=== PATIENT | male | born 1935 | race Two or more races ===

== ENCOUNTER 2023-02-05 16:16 | Inpatient (IN) | payer OTHER ==
[~2023-02-05] VITALS: Ht 160 cm; Wt 59.0 kg
[2023-02-05] MEDS ORDERED: VANCOMYCIN 1 GM in IV D5W 250 ML IV ONE (16:30)
[2023-02-05] MEDS ORDERED: IV NS 0.9% 1,000 ML BAG IV ONE (16:30)
[2023-02-05] MEDS ORDERED: ACETAMINOPHEN 650 MG/SUPP.RECT RC ONE ×2 (16:30→16:42)
[2023-02-05] MEDS ORDERED: CEFEPIME 1 GM in IV D5W 50 ML IV ONE (16:30)
[2023-02-05] MEDS ORDERED: VANCOMYCIN 1 GM /D5W 250 ML PB IV ONE (16:42)
[2023-02-05 16:47] LABS: ABG BASE EXCESS -4.9 mmol/L; ABG OXYGEN SATURATION 91.6 % (92.0-98.5); ABG PCO2 31.8 mmHg (35.0-45.0); ABG PH 7.388 (7.350-7.450); ABG TOTAL HEMOGLOBIN 17.3 G/dL (13.5-18.0); COHb 1.3 % (0.5-1.5); MetHb 0.6 % (0.0-1.5); O2Hb 89.9 % (94.0-97.0); SITE, ABG Right Radial; VENT MODE, BG 4LNC
[2023-02-05 16:59] LABS: CARBON DIOXIDE 23 mmol/L (21-32); CHLORIDE 107 mmol/L (98-107); CREATININE 1.4 mg/dL (0.6-1.3); GLUCOSE 131 mg/dL (74-106); POTASSIUM 4.2 mmol/L (3.5-5.1); SODIUM SERUM 142 mmol/L (136-145); UREA NITROGEN, BLOOD 32 mg/dL (7-18)
[2023-02-05 17:00] LABS: BASOPHILS % (AUTO) 0.2 % (0.0-2.0); EOSINOPHILS % (AUTO) 0.4 % (0.0-6.0); HEMATOCRIT 51 % (39-51); HEMOGLOBIN 17.1 g/dL (13.5-17.5); LYMPHOCYTES # (AUTO) 0.4 K/uL (0.8-4.8); LYMPHOCYTES % (AUTO) 16.2 % (20.0-44.0); MEAN CORPUSCULAR HEMOGLOBIN 35 PG (26.0-33.0); MEAN CORPUSCULAR HGB CONC 33 g/dl (31.0-36.0); MEAN CORPUSCULAR VOLUME 106 fL (80-96); MONOCYTES # (AUTO) 0.1 K/uL (0.1-1.30); MONOCYTES % (AUTO) 2.7 % (2.0-12.0); NEUTROPHILS # (AUTO) 1.9 K/uL (1.8-8.9); NEUTROPHILS % (AUTO) 80.5 % (43.0-81.0); PLATELET COUNT (AUTO) 114 K/uL (150-450); RED BLOOD CELL COUNT(AUTO) 4.86 MIL/uL (4.5-6.0); RED CELL DISTRIBUTION WIDTH 15.2 % (11.5-15.0); WHITE BLOOD COUNT (AUTO) 2.4 K/uL (4.3-11.0)
[2023-02-05 17:05] LABS: ALANINE AMINOTRANSFERASE 14 U/L (12-78); ALBUMIN 2.9 g/dL (3.4-5.0); ALKALINE PHOSPHATASE 91 U/L (46-116); ASPARTATE AMINOTRANSFERASE 35 U/L (15-37); BILIRUBIN,DIRECT 0.5 mg/dL (0.0-0.2); BILIRUBIN,TOTAL 1.9 mg/dL (0.2-1.0); TOTAL PROTEIN, SERUM 8.2 g/dL (6.4-8.2)
[2023-02-05 17:10] LABS: LACTIC ACID 3.7 mmol/L (0.4-2.0)
[2023-02-05 17:56] LABS: APPEARANCE,URINE CLEAR (CLEAR); BILIRUBIN,URINE NEGATIVE (NEGATIVE); BLOOD, URINE 3+ Ery/uL (NEGATIVE); COLOR,URINE YELLOW (YELLOW); KETONES,URINE NEGATIVE (NEGATIVE); LEUKOCYTE ESTERASE ,URINE NEGATIVE (NEGATIVE); NITRITE, URINE NEGATIVE (NEGATIVE); PROTEIN,URINE 3+ mg/dl (NEGATIVE); UGLUCOSE NEGATIVE (NEGATIVE)
[2023-02-05 17:59] LABS: INR 1.12 (0.91-1.10); PARTIAL THROMBOPLASTIN TIME 29.6 SEC (24.3-34.3); PROTHROMBIN TIME 11.7 SECS (9.2-11.1)
[2023-02-05] MEDS ORDERED: IV NS 0.9% 1,000 ML IV ONE (18:30)
[2023-02-05 18:45] LABS: ADD URINE CULTURE NO; BACTERIA,URINE 1+ /HPF (None Seen); FINE GRANULAR CASTS,URINE Few /LPF (None Seen); MUCUS,URINE Few /LPF (None Seen); RBC,URINE 51-80 /HPF (0-2); WBC,URINE 0-2 /HPF (0-3)
[2023-02-05] MEDS ORDERED: IBUPROFEN 600 MG TABLET ONE (18:52)
[2023-02-05 18:56] LABS: ANISOCYTOSIS 1+; BAND % (MANUAL) 14 % (0.0-5.0); LYMPHOCYTES % (MANUAL) 22 % (16-48); NEUTROPHILS % (MANUAL) 64 (42-76); PLATELET ESTIMATE DECREASED; ROULEAUX 1+
[2023-02-05] MEDS ORDERED: IBUPROFEN 400 MG TABLET PO ONE (19:00)
[2023-02-05] MEDS ORDERED: IOHEXOL-300 100 ML VIAL IV ONE (19:48)
[2023-02-05] MEDS ORDERED: IV NS 0.9% 250 ML IV ONE (19:49)
[2023-02-05] MEDS ORDERED: ACETAMINOPHEN 650 MG/SUPP.RECT RC PRN (22:30)
[2023-02-05] MEDS ORDERED: ALBUTEROL FS 2.5 MG/3 ML VIAL.NEB NEB PRN (22:30)
[2023-02-05] MEDS ORDERED: ACETAMINOPHEN 325 MG TABLET PO PRN (22:30)
[2023-02-05] MEDS ORDERED: ONDANSETRON HCL/PF 4 MG/2 ML VIAL IVP PRN (22:30)
[2023-02-05] MEDS ORDERED: IPRATROPIUM NEB FS 0.5 MG/2.5 ML AMPUL.NEB NEB PRN (22:30)
[2023-02-05] MEDS ORDERED: Z GUARD REMEDY 4 OZ OINT TP PRN (22:30)
[2023-02-06 02:06] VITALS: BP 152/96; TEMP 98.9; O2SAT 96
[2023-02-06] MEDS ORDERED: CEFEPIME 1 GM in IV D5W 50 ML IV ONE (05:00)
[2023-02-06] MEDS ORDERED: CEFEPIME 1 GM VIAL ONE (05:08)
[2023-02-06] MEDS: IV D5/0.45 NACL 1,000 ML IV PRN ×2 (05:37→23:51)
[2023-02-06 05:44] LABS: BASOPHILS % (AUTO) 0.1 % (0.0-2.0); EOSINOPHILS % (AUTO) 0.1 % (0.0-6.0); HEMATOCRIT 46 % (39-51); HEMOGLOBIN 14.8 g/dL (13.5-17.5); LYMPHOCYTES # (AUTO) 1.2 K/uL (0.8-4.8); LYMPHOCYTES % (AUTO) 15.6 % (20.0-44.0); MEAN CORPUSCULAR HEMOGLOBIN 34 PG (26.0-33.0); MEAN CORPUSCULAR HGB CONC 33 g/dl (31.0-36.0); MEAN CORPUSCULAR VOLUME 105 fL (80-96); MONOCYTES # (AUTO) 0.7 K/uL (0.1-1.30); MONOCYTES % (AUTO) 8.7 % (2.0-12.0); NEUTROPHILS # (AUTO) 5.8 K/uL (1.8-8.9); NEUTROPHILS % (AUTO) 75.5 % (43.0-81.0); PLATELET COUNT (AUTO) 97 K/uL (150-450); RED BLOOD CELL COUNT(AUTO) 4.32 MIL/uL (4.5-6.0); RED CELL DISTRIBUTION WIDTH 15.1 % (11.5-15.0); WHITE BLOOD COUNT (AUTO) 7.7 K/uL (4.3-11.0)
[2023-02-06 06:02] LABS: CALCIUM, SERUM 8.2 mg/dL (8.5-10.1); CARBON DIOXIDE 22 mmol/L (21-32); CHLORIDE 110 mmol/L (98-107); CREATININE 1.4 mg/dL (0.6-1.3); GLUCOSE 125 mg/dL (74-106); MAGNESIUM 1.6 mg/dL (1.8-2.4); PHOSPHORUS 2.8 mg/dL (2.5-4.9); POTASSIUM 3.8 mmol/L (3.5-5.1); SODIUM SERUM 142 mmol/L (136-145); UREA NITROGEN, BLOOD 40 mg/dL (7-18)
[2023-02-06 06:09] LABS: CHOLESTEROL 82 mg/dL (<200); HDL CHOLESTEROL 44 mg/dL (40-60); LDL 42 mg/dL (0-99); TRIGLYCERIDES 57 mg/dL (30-150)
[2023-02-06] MEDS ORDERED: PANTOPRAZOLE 40 MG TABLET.DR PO SCH (07:30)
[2023-02-06] MEDS: PANTOPRAZOLE 40 MG VIAL IV SCH (08:32)
[2023-02-06] MEDS: HEPARIN SODIUM, PORCINE 5000 UNITS/1 ML VIAL SQ SCH ×2 (08:33→21:00)
[2023-02-06] MEDS: Magnesium 1GM/D5W 100ML PREMIX 100 ML IV SCH ×2 (12:10→13:17)
[2023-02-06 13:26] LABS: BAND % (MANUAL) 24 % (0.0-5.0); LYMPHOCYTES % (MANUAL) 23 % (16-48); MONOCYTES % (MANUAL) 9 % (0-11.0); NEUTROPHILS % (MANUAL) 44 (42-76); PLATELET ESTIMATE DECREASED
[2023-02-06 13:27] LABS: ANISOCYTOSIS 1+
[2023-02-06 13:28] LABS: OVALOCYTES 1+
[2023-02-06 13:29] LABS: TEAR DROP CELLS OCC
[2023-02-06] MEDS: VANCOMYCIN 1 GM in IV D5W 250ml IV SCH (16:24)
[2023-02-06 20:00] VITALS: BP 146/65; TEMP 99.3; O2SAT 97
[2023-02-07] VITALS: BP 150/59; TEMP 98.8; O2SAT 98
[2023-02-07 04:00] VITALS: BP 144/63; TEMP 98.4; O2SAT 97
[2023-02-07] MEDS: CEFEPIME 2 GM in IV D5W 100 ML IV SCH (05:18)
[2023-02-07 06:47] LABS: BASOPHILS % (AUTO) 0.1 % (0.0-2.0); EOSINOPHILS # (AUTO) 0.2 K/uL (0.0-0.7); EOSINOPHILS % (AUTO) 1.5 % (0.0-6.0); HEMATOCRIT 42 % (39-51); HEMOGLOBIN 13.9 g/dL (13.5-17.5); LYMPHOCYTES # (AUTO) 1.1 K/uL (0.8-4.8); LYMPHOCYTES % (AUTO) 10.5 % (20.0-44.0); MEAN CORPUSCULAR HEMOGLOBIN 35 PG (26.0-33.0); MEAN CORPUSCULAR HGB CONC 33 g/dl (31.0-36.0); MEAN CORPUSCULAR VOLUME 107 fL (80-96); MONOCYTES # (AUTO) 0.5 K/uL (0.1-1.30); MONOCYTES % (AUTO) 4.4 % (2.0-12.0); NEUTROPHILS % (AUTO) 83.5 % (43.0-81.0); PLATELET COUNT (AUTO) 97 K/uL (150-450); RED BLOOD CELL COUNT(AUTO) 3.97 MIL/uL (4.5-6.0); RED CELL DISTRIBUTION WIDTH 14.9 % (11.5-15.0); WHITE BLOOD COUNT (AUTO) 10.8 K/uL (4.3-11.0)
[2023-02-07 07:07] LABS: ALANINE AMINOTRANSFERASE 17 U/L (12-78); ALBUMIN 2.2 g/dL (3.4-5.0); ALKALINE PHOSPHATASE 55 U/L (46-116); ASPARTATE AMINOTRANSFERASE 32 U/L (15-37); BILIRUBIN,TOTAL 1.1 mg/dL (0.2-1.0); CALCIUM, SERUM 7.9 mg/dL (8.5-10.1); CARBON DIOXIDE 26 mmol/L (21-32); CHLORIDE 106 mmol/L (98-107); CREATININE 1.1 mg/dL (0.6-1.3); GLUCOSE 145 mg/dL (74-106); MAGNESIUM 2.4 mg/dL (1.8-2.4); PHOSPHORUS 1.4 mg/dL (2.5-4.9); POTASSIUM 3.6 mmol/L (3.5-5.1); SODIUM SERUM 138 mmol/L (136-145); UREA NITROGEN, BLOOD 33 mg/dL (7-18)
[2023-02-07] MEDS: PANTOPRAZOLE 40 MG VIAL IV SCH (08:43)
[2023-02-07] MEDS: HEPARIN SODIUM, PORCINE 5000 UNITS/1 ML VIAL SQ SCH ×3 (08:44→23:00)
[2023-02-07] MEDS: LOSARTAN POTASSIUM 50 MG TABLET PO SCH (10:26)
[2023-02-07] MEDS: NEUTRA PHOS 1 POWD.PACKET PO SCH ×2 (10:26→17:41)
[2023-02-07 13:28] LABS: PLATELET ESTIMATE DECREASED
[2023-02-07 13:30] LABS: ANISOCYTOSIS 1+; TEAR DROP CELLS 1+
[2023-02-07] MEDS ORDERED: MONT10TA22 PO (13:37)
[2023-02-07] MEDS ORDERED: FLUT16SP16 (13:37)
[2023-02-07] MEDS ORDERED: ATOR40TA PO (13:37)
[2023-02-07] MEDS ORDERED: POTA10TA11 PO (13:37)
[2023-02-07] MEDS ORDERED: CARV6.252 PO (13:37)
[2023-02-07] MEDS ORDERED: CLON0.2T PO (13:37)
[2023-02-07] MEDS: VANCOMYCIN 1 GM in IV D5W 250ml IV SCH (15:15)
[2023-02-07] MEDS: IV D5/0.45 NACL 1,000 ML IV PRN (18:44)
[2023-02-07 20:00] VITALS: BP 158/85; TEMP 98.6; O2SAT 95
[2023-02-08] VITALS (7 sets, daily range): BP systolic 148–185; BP diastolic 63–89; TEMP 97.5–99.3; O2SAT 92–97
[2023-02-08] MEDS: CEFEPIME 2 GM in IV D5W 100 ML IV SCH (05:07)
[2023-02-08] MEDS: IV D5/0.45 NACL 1,000 ML IV PRN (05:10)
[2023-02-08 07:01] LABS: BASOPHILS % (AUTO) 0.1 % (0.0-2.0); EOSINOPHILS # (AUTO) 0.2 K/uL (0.0-0.7); EOSINOPHILS % (AUTO) 2.6 % (0.0-6.0); HEMATOCRIT 40 % (39-51); HEMOGLOBIN 13.1 g/dL (13.5-17.5); LYMPHOCYTES # (AUTO) 0.9 K/uL (0.8-4.8); LYMPHOCYTES % (AUTO) 9.3 % (20.0-44.0); MEAN CORPUSCULAR HEMOGLOBIN 35 PG (26.0-33.0); MEAN CORPUSCULAR HGB CONC 33 g/dl (31.0-36.0); MEAN CORPUSCULAR VOLUME 105 fL (80-96); MONOCYTES # (AUTO) 0.5 K/uL (0.1-1.30); MONOCYTES % (AUTO) 5.6 % (2.0-12.0); NEUTROPHILS # (AUTO) 7.6 K/uL (1.8-8.9); NEUTROPHILS % (AUTO) 82.4 % (43.0-81.0); PLATELET COUNT (AUTO) 111 K/uL (150-450); RED BLOOD CELL COUNT(AUTO) 3.77 MIL/uL (4.5-6.0); RED CELL DISTRIBUTION WIDTH 14.5 % (11.5-15.0); WHITE BLOOD COUNT (AUTO) 9.3 K/uL (4.3-11.0)
[2023-02-08 07:37] LABS: ALANINE AMINOTRANSFERASE 28 U/L (12-78); ALBUMIN 1.9 g/dL (3.4-5.0); ALKALINE PHOSPHATASE 61 U/L (46-116); ASPARTATE AMINOTRANSFERASE 38 U/L (15-37); BILIRUBIN,TOTAL 1.2 mg/dL (0.2-1.0); CALCIUM, SERUM 7.9 mg/dL (8.5-10.1); CARBON DIOXIDE 25 mmol/L (21-32); CREATININE 0.9 mg/dL (0.6-1.3); GLUCOSE 127 mg/dL (74-106); MAGNESIUM 2.2 mg/dL (1.8-2.4); TOTAL PROTEIN, SERUM 6.8 g/dL (6.4-8.2); UREA NITROGEN, BLOOD 21 mg/dL (7-18)
[2023-02-08 08:12] LABS: CHLORIDE 99 mmol/L (98-107); SODIUM SERUM 132 mmol/L (136-145)
[2023-02-08] MEDS: PANTOPRAZOLE 40 MG VIAL IV SCH (08:41)
[2023-02-08] MEDS: LOSARTAN POTASSIUM 50 MG TABLET PO SCH (08:43)
[2023-02-08] MEDS: NEUTRA PHOS 1 POWD.PACKET PO SCH ×2 (08:48→16:47)
[2023-02-08] MEDS: POTASSIUM CHLORIDE 20 MEQ TAB.PRT.SR PO SCH ×3 (08:48→10:58)
[2023-02-08] MEDS: ENOXAPARIN SODIUM 40 MG/0.4 ML DISP.SYRIN SQ SCH (08:50)
[2023-02-08] MEDS: VANCOMYCIN HCL 0.75 GM in IV D5W 250 ML IV SCH (16:42)
[2023-02-09] VITALS: BP 189/83; TEMP 99.1; O2SAT 92
[2023-02-09] MEDS: hydrALAZINE HCL 25 MG TABLET PO PRN (02:57)
[2023-02-09] MEDS: IV D5/ 0.9% NACL 1,000 ML IV PRN ×2 (03:14→23:51)
[2023-02-09] MEDS: VANCOMYCIN HCL 0.75 GM in IV D5W 250 ML IV SCH ×2 (03:19→16:11)
[2023-02-09 04:00] VITALS: BP 150/72; TEMP 98.6; O2SAT 92
[2023-02-09] MEDS: CEFEPIME 2 GM in IV D5W 100 ML IV SCH ×2 (05:06→21:13)
[2023-02-09 06:48] LABS: BASOPHILS % (AUTO) 0.1 % (0.0-2.0); EOSINOPHILS # (AUTO) 0.3 K/uL (0.0-0.7); EOSINOPHILS % (AUTO) 4.7 % (0.0-6.0); HEMATOCRIT 41 % (39-51); HEMOGLOBIN 13.5 g/dL (13.5-17.5); LYMPHOCYTES # (AUTO) 0.9 K/uL (0.8-4.8); MEAN CORPUSCULAR HEMOGLOBIN 35 PG (26.0-33.0); MEAN CORPUSCULAR HGB CONC 33 g/dl (31.0-36.0); MEAN CORPUSCULAR VOLUME 106 fL (80-96); MONOCYTES # (AUTO) 0.7 K/uL (0.1-1.30); MONOCYTES % (AUTO) 9.2 % (2.0-12.0); NEUTROPHILS # (AUTO) 5.5 K/uL (1.8-8.9); PLATELET COUNT (AUTO) 134 K/uL (150-450); RED BLOOD CELL COUNT(AUTO) 3.89 MIL/uL (4.5-6.0); RED CELL DISTRIBUTION WIDTH 14.8 % (11.5-15.0); WHITE BLOOD COUNT (AUTO) 7.4 K/uL (4.3-11.0)
[2023-02-09 07:20] LABS: ALBUMIN 1.8 g/dL (3.4-5.0); CREATININE 0.9 mg/dL (0.6-1.3); MAGNESIUM 2.1 mg/dL (1.8-2.4); PHOSPHORUS 2.4 mg/dL (2.5-4.9)
[2023-02-09 08:00] VITALS: BP 180/89; TEMP 98.4; O2SAT 95
[2023-02-09 08:11] LABS: POTASSIUM 3.9 mmol/L (3.5-5.1)
[2023-02-09] MEDS: PANTOPRAZOLE 40 MG/PACK PACK PO SCH (08:45)
[2023-02-09] MEDS: AMLODIPINE BESYLATE 5 MG TABLET PO SCH ×2 (08:46→21:13)
[2023-02-09] MEDS: LOSARTAN POTASSIUM 50 MG TABLET PO SCH (08:46)
[2023-02-09] MEDS: ENOXAPARIN SODIUM 40 MG/0.4 ML DISP.SYRIN SQ SCH (08:48)
[2023-02-09] MEDS ORDERED: NEUTRA PHOS 1 POWD.PACKET PO ONE (09:30)
[2023-02-09 10:12] LABS: BILIRUBIN,TOTAL 0.7 mg/dL (0.2-1.0); TOTAL PROTEIN, SERUM 6.7 g/dL (6.4-8.2)
[2023-02-09 12:00] VITALS: BP 185/84; TEMP 98.7; O2SAT 96
[2023-02-09 16:00] VITALS: BP 177/79; TEMP 98.7; O2SAT 96
[2023-02-09 20:00] VITALS: BP 159/81; TEMP 98.6; O2SAT 94
[2023-02-10] VITALS (10 sets, daily range): BP systolic 135–209; BP diastolic 69–94; TEMP 98–99.7; O2SAT 94–97
[2023-02-10] MEDS: hydrALAZINE HCL 25 MG TABLET PO PRN ×2 (00:37→16:05)
[2023-02-10 04:24] LABS: CALCIUM, SERUM 8.3 mg/dL (8.5-10.1); CREATININE 0.9 mg/dL (0.6-1.3); MAGNESIUM 1.8 mg/dL (1.8-2.4)
[2023-02-10] MEDS: VANCOMYCIN HCL 0.75 GM in IV D5W 250 ML IV SCH ×2 (04:40→15:49)
[2023-02-10] MEDS: LOSARTAN POTASSIUM 50 MG TABLET PO SCH (08:44)
[2023-02-10] MEDS: AMLODIPINE BESYLATE 5 MG TABLET PO SCH (08:45)
[2023-02-10] MEDS: ENOXAPARIN SODIUM 40 MG/0.4 ML DISP.SYRIN SQ SCH (08:46)
[2023-02-10] MEDS: PANTOPRAZOLE 40 MG/PACK PACK PO SCH (08:46)
[2023-02-10] MEDS: CEFEPIME 2 GM in IV D5W 100 ML IV SCH (08:49)
[2023-02-10] MEDS ORDERED: NEUTRA PHOS 1 POWD.PACKET PO ONE (16:00)
[2023-02-10] MEDS ORDERED: ENSURE ENLIVE CHOC 237 ML CAN PO SCH (17:00)
== END 2023-02-10 18:13 | disposition home health service (06) | DRG 871 ==
LOC: ER 16:59 → TELE1 23:54 → MEDSG1 02-10 08:38
PROVIDERS: ADMIT Nurse Practitioner Family
DX: A41.9 Sepsis, unspecified organism (principal); J69.0 Pneumonitis due to inhalation of food and vomit; J96.01 Acute respiratory failure with hypoxia; N17.0 Acute kidney failure with tubular necrosis; E44.0 Moderate protein-calorie malnutrition; D61.818 Other pancytopenia; E87.1 Hypo-osmolality and hyponatremia; E87.29 Other acidosis; G93.40 Encephalopathy, unspecified; R65.20 Severe sepsis without septic shock; E83.42 Hypomagnesemia; E86.0 Dehydration; E87.6 Hypokalemia; E88.09 Other disorders of plasma-protein metabolism, not elsewhere classified; J44.9 Chronic obstructive pulmonary disease, unspecified; M89.8X9 Other specified disorders of bone, unspecified site; E80.6 Other disorders of bilirubin metabolism; Z68.23 Body mass index [BMI] 23.0-23.9, adult; I70.0 Atherosclerosis of aorta; E87.8 Other disorders of electrolyte and fluid balance, not elsewhere classified; N18.9 Chronic kidney disease, unspecified; E83.9 Disorder of mineral metabolism, unspecified; I71.22 Aneurysm of the aortic arch, without rupture; D69.6 Thrombocytopenia, unspecified; R91.8 Other nonspecific abnormal finding of lung field
CPT/HCPCS: 36415; 36600; 71045-TC; 71260-TC; 76770-TC; 80048-TC; 80053-TC; 80061-TC; 80076-TC; 80202-TC; 81001; 83605-TC; 83735-TC; 84100-TC; 84443-TC; 84484-TC; 85025-TC; 85730-TC; 87040-TC; 87081-TC; 87086-TC; 92526; 92611-TC; 93307-TC; 97110-TC; 97112-TC; 97116-TC; 97530-TC; A4223; C9113; C9803; G0378; J0692; J1644; J1650; J2405; J3370; J3475; J3490; J7042; J7050; J7060; Q9967

== ENCOUNTER 2023-07-04 10:34 | Inpatient (IN) | payer OTHER, MEDICAID ==
[~2023-07-04] VITALS: Ht 152.4 cm; Wt 58.1 kg
[~2023-07-04 10:34] MED LIST: ATOR40TA PO; CARV6.252 PO; CLON0.2T PO; FLUT16SP16; MONT10TA22 PO; POTA10TA11 PO
[2023-07-04] MEDS ORDERED: RIVA10TA PO (11:48)
[2023-07-04] MEDS ORDERED: ALBU18HF2 IH (11:48)
[2023-07-04] MEDS ORDERED: FURO-144 PO (11:48)
[2023-07-04] MEDS ORDERED: BREO-ELLIPTA IH (11:48)
[2023-07-04] MEDS ORDERED: AMLO-213 PO (11:48)
[2023-07-04] MEDS ORDERED: TAMS-12 PO (11:48)
[2023-07-04] MEDS ORDERED: ALEN70TA80 PO (11:48)
[2023-07-04 12:15] LABS: CALCIUM, SERUM 9.2 mg/dL (8.5-10.1); CREATININE 1.1 mg/dL (0.6-1.3); POTASSIUM 4.4 mmol/L (3.5-5.1)
[2023-07-04 12:21] LABS: ALBUMIN 3.2 g/dL (3.4-5.0); BILIRUBIN,DIRECT 0.2 mg/dL (0.0-0.2); BILIRUBIN,TOTAL 0.6 mg/dL (0.2-1.0); TOTAL PROTEIN, SERUM 8.2 g/dL (6.4-8.2)
[2023-07-04 12:41] LABS: BASOPHILS % (AUTO) 0.3 % (0.0-2.0); EOSINOPHILS # (AUTO) 0.8 K/uL (0.0-0.7); EOSINOPHILS % (AUTO) 17.4 % (0.0-6.0); HEMATOCRIT 42 % (39-51); HEMOGLOBIN 13.9 g/dL (13.5-17.5); LYMPHOCYTES # (AUTO) 1.7 K/uL (0.8-4.8); LYMPHOCYTES % (AUTO) 38.2 % (20.0-44.0); MEAN CORPUSCULAR HEMOGLOBIN 34 PG (26.0-33.0); MEAN CORPUSCULAR HGB CONC 33 g/dl (31.0-36.0); MEAN CORPUSCULAR VOLUME 102 fL (80-96); MONOCYTES # (AUTO) 0.3 K/uL (0.1-1.30); MONOCYTES % (AUTO) 6.2 % (2.0-12.0); NEUTROPHILS # (AUTO) 1.7 K/uL (1.8-8.9); NEUTROPHILS % (AUTO) 37.9 % (43.0-81.0); PLATELET COUNT (AUTO) 98 K/uL (150-450); RED CELL DISTRIBUTION WIDTH 14.4 % (11.5-15.0); WHITE BLOOD COUNT (AUTO) 4.5 K/uL (4.3-11.0)
[2023-07-04 13:02] LABS: APPEARANCE,URINE CLEAR (CLEAR); BILIRUBIN,URINE NEGATIVE (NEGATIVE); BLOOD, URINE 1+ Ery/uL (NEGATIVE); COLOR,URINE YELLOW (YELLOW); KETONES,URINE NEGATIVE (NEGATIVE); LEUKOCYTE ESTERASE ,URINE NEGATIVE (NEGATIVE); NITRITE, URINE NEGATIVE (NEGATIVE); PROTEIN,URINE 1+ mg/dl (NEGATIVE); UGLUCOSE NEGATIVE (NEGATIVE)
[2023-07-04 13:18] LABS: BAND % (MANUAL) 1 % (0.0-5.0); EOSINOPHILS % (MANUAL) 13 % (0-4); LYMPHOCYTES % (MANUAL) 38 % (16-48); MONOCYTES % (MANUAL) 6 % (0-11.0); NEUTROPHILS % (MANUAL) 42 (42-76); PLATELET ESTIMATE DECREASED
[2023-07-04 13:21] LABS: ADD URINE CULTURE NO; BACTERIA,URINE Few /HPF (None Seen); SQUAMOUS EPITHELIAL CELL,UR Rare /HPF (None Seen); WBC,URINE 0-2 /HPF (0-3)
[2023-07-04] MEDS: IV NS 0.9% 1,000 ML BAG IV ONE (13:30)
[2023-07-04] MEDS ORDERED: hydrALAZINE HCL IV 20 MG VIAL ONE (16:12)
[2023-07-04] MEDS: hydrALAZINE HCL IV 20 MG VIAL IV ONE (16:15)
[2023-07-04] MEDS ORDERED: CLONIDINE HCL 0.1 MG TABLET PO PRN (16:30)
[2023-07-04] MEDS ORDERED: Z GUARD REMEDY 4 OZ OINT TP PRN (16:30)
[2023-07-04] MEDS ORDERED: ONDANSETRON HCL/PF 4 MG/2 ML VIAL IVP PRN (16:30)
[2023-07-04] MEDS ORDERED: ALENDRONATE 70 MG TABLET PO SCH (16:30)
[2023-07-04] MEDS ORDERED: MAG HYDROX/AL HYDROX/SIMETH 30 ML UDC PO PRN (16:30)
[2023-07-04] MEDS ORDERED: ACETAMINOPHEN 325 MG TABLET PO PRN (16:30)
[2023-07-04] MEDS ORDERED: MAGNESIUM HYDROXIDE 30 ML UDC PO PRN (16:30)
[2023-07-04] MEDS: CARVEDILOL 6.25 MG TABLET PO SCH (17:54)
[2023-07-04] MEDS: MONTELUKAST SODIUM (10MG) 10 MG TABLET PO SCH (17:55)
[2023-07-04] MEDS: AMLODIPINE BESYLATE 10 MG TABLET PO SCH (17:57)
[2023-07-04 20:00] VITALS: BP 154/72; TEMP 97.7; O2SAT 97
[2023-07-04] MEDS: IV D5/0.45 NACL 1,000 ML IV PRN (22:49)
[2023-07-04 23:40] VITALS: BP 154/72; TEMP 97.7; O2SAT 97
[2023-07-05] VITALS (8 sets, daily range): BP systolic 131–168; BP diastolic 63–94; TEMP 97.5–99.1; O2SAT 95–99
[2023-07-05] MEDS: ALBUTEROL FS 2.5 MG/3 ML VIAL.NEB NEB PRN (00:06)
[2023-07-05 06:42] LABS: BASOPHILS % (AUTO) 0.4 % (0.0-2.0); EOSINOPHILS # (AUTO) 0.7 K/uL (0.0-0.7); EOSINOPHILS % (AUTO) 13.6 % (0.0-6.0); HEMATOCRIT 41 % (39-51); HEMOGLOBIN 13.8 g/dL (13.5-17.5); LYMPHOCYTES # (AUTO) 1.4 K/uL (0.8-4.8); LYMPHOCYTES % (AUTO) 26.4 % (20.0-44.0); MEAN CORPUSCULAR HEMOGLOBIN 35 PG (26.0-33.0); MEAN CORPUSCULAR HGB CONC 34 g/dl (31.0-36.0); MEAN CORPUSCULAR VOLUME 103 fL (80-96); MONOCYTES # (AUTO) 0.3 K/uL (0.1-1.30); MONOCYTES % (AUTO) 6.1 % (2.0-12.0); NEUTROPHILS # (AUTO) 2.9 K/uL (1.8-8.9); NEUTROPHILS % (AUTO) 53.5 % (43.0-81.0); PLATELET COUNT (AUTO) 92 K/uL (150-450); RED CELL DISTRIBUTION WIDTH 14.9 % (11.5-15.0); WHITE BLOOD COUNT (AUTO) 5.3 K/uL (4.3-11.0)
[2023-07-05 07:06] LABS: ALANINE AMINOTRANSFERASE 13 U/L (12-78); ALBUMIN 2.8 g/dL (3.4-5.0); ALKALINE PHOSPHATASE 72 U/L (46-116); ASPARTATE AMINOTRANSFERASE 25 U/L (15-37); BILIRUBIN,TOTAL 1.2 mg/dL (0.2-1.0); CALCIUM, SERUM 8.9 mg/dL (8.5-10.1); CARBON DIOXIDE 26 mmol/L (21-32); CHLORIDE 102 mmol/L (98-107); CREATININE 0.8 mg/dL (0.6-1.3); GLUCOSE 87 mg/dL (74-106); POTASSIUM 4.5 mmol/L (3.5-5.1); SODIUM SERUM 133 mmol/L (136-145); TOTAL PROTEIN, SERUM 7.5 g/dL (6.4-8.2); UREA NITROGEN, BLOOD 18 mg/dL (7-18)
[2023-07-05 08:45] LABS: BAND % (MANUAL) 3 % (0.0-5.0); EOSINOPHILS % (MANUAL) 10 % (0-4); LYMPHOCYTES % (MANUAL) 26 % (16-48); MONOCYTES % (MANUAL) 6 % (0-11.0); NEUTROPHILS % (MANUAL) 55 (42-76); PLATELET ESTIMATE DECREASED
[2023-07-05] MEDS: FUROSEMIDE 40 MG TABLET PO SCH (08:52)
[2023-07-05] MEDS: ATORVASTATIN 40 MG TABLET PO SCH (08:52)
[2023-07-05] MEDS: FLUTICASONE/VILANTEROL 1 EACH BLST.W.DEV IH SCH (08:53)
[2023-07-05] MEDS: TAMSULOSIN 0.4 MG CAP.SR.24H PO SCH (08:53)
[2023-07-05] MEDS: RIVAROXABAN 10 MG TABLET PO SCH (08:55)
[2023-07-05] MEDS: hydrALAZINE HCL 25 MG TABLET PO SCH (17:21)
[2023-07-06] VITALS (8 sets, daily range): BP systolic 130–156; BP diastolic 57–72; TEMP 97.9–99.1; O2SAT 95–97
[2023-07-06] MEDS ORDERED: IV NS 0.9% 250 ML IV ONE (13:04)
[2023-07-06] MEDS ORDERED: IOHEXOL-300 100 ML VIAL IV ONE (13:04)
[2023-07-06] MEDS ORDERED: CT SWABBABLE VALVE TRANS SET 1 EA INFUS.SET MC ONE (13:04)
[2023-07-06] MEDS: PROSOURCE / PROSTAT (PYXIS) 30 ML UDC PO SCH (16:04)
[2023-07-07] VITALS: BP 139/55; TEMP 98.6; O2SAT 98
[2023-07-07 00:23] VITALS: BP 139/55; TEMP 98.6; O2SAT 98
[2023-07-07 04:25] VITALS: BP 144/62; TEMP 98.4; O2SAT 97
[2023-07-07 08:00] VITALS: BP 144/68; TEMP 97.9; O2SAT 97
[2023-07-07 13:39] VITALS: BP 123/69
== END 2023-07-07 14:44 | disposition home health service (06) | DRG 78 ==
LOC: ER 10:57 → MED 13:58 → TELE 21:37
PROVIDERS: ADMIT Internal Medicine; ATTEND Internal Medicine
DX: I67.4 Hypertensive encephalopathy (principal); E44.0 Moderate protein-calorie malnutrition; R62.7 Adult failure to thrive; I10 Essential (primary) hypertension; E88.09 Other disorders of plasma-protein metabolism, not elsewhere classified; E86.0 Dehydration; E78.5 Hyperlipidemia, unspecified; F03.90 Unspecified dementia, unspecified severity, without behavioral disturbance, psychotic disturbance, mood disturbance, and anxiety; Z68.25 Body mass index [BMI] 25.0-25.9, adult; D36.10 Benign neoplasm of peripheral nerves and autonomic nervous system, unspecified; Z20.822 Contact with and (suspected) exposure to COVID-19; I70.0 Atherosclerosis of aorta
CPT/HCPCS: 36415; 71045-TC; 71260-TC; 80048-TC; 80053-TC; 80076-TC; 81001; 82962-TC; 84484-TC; 85025-TC; 94799-TC; A4223; G0378; J0360; J3490; J7030; J7050; Q9967

== ENCOUNTER 2023-08-07 14:05 | Emergency (ER) | payer OTHER, MEDICAID ==
[~2023-08-07 14:05] MED LIST changes: +ALBU18HF2 IH; +ALEN70TA80 PO; +AMLO-213 PO; +BREO-ELLIPTA IH; -FLUT16SP16; +FURO-144 PO; -POTA10TA11 PO; +RIVA10TA PO; +TAMS-12 PO
== END 2023-08-07 16:12 | disposition left against medical advice (07) ==
LOC: ER 14:08
DX: Z00.00 Encounter for general adult medical examination without abnormal findings (principal); Z53.21 Procedure and treatment not carried out due to patient leaving prior to being seen by health care provider